=== PATIENT | female | born 1985 | race Caucasian/White ===

== ENCOUNTER 2016-06-07 08:13 | Outpatient (CLI) | payer OTHER | END 2016-06-07 08:14 | disposition home or self-care (01) | DX: S89.81XA Other specified injuries of right lower leg, initial encounter (principal); M25.461 Effusion, right knee ==

== ENCOUNTER 2016-06-15 12:12 | Outpatient (CLI) | payer OTHER | END 2016-06-15 12:13 | disposition home or self-care (01) | DX: M22.41 Chondromalacia patellae, right knee (principal); M25.461 Effusion, right knee; M67.461 Ganglion, right knee ==

== ENCOUNTER 2016-11-06 11:36 | Outpatient (CLI) | payer OTHER ==
[2016-11-06 12:05] LABS: BASOPHILS % (AUTO) 0.8 %; EOSINOPHILS # (AUTO) 0.1 10^3/uL (0.0-0.7); EOSINOPHILS % (AUTO) 1.2 %; HGB - HEMOGLOBIN 14.2 g/dL (12.0-16.0); LYMPHOCYTES # (AUTO) 1.5 10^3/uL (1.5-3.5); MEAN CORPUSCULAR HGB CONC 33.1 g/dL (32.0-36.0); MEAN CORPUSCULAR VOLUME 96.7 fL (81.0-99.0); MONOCYTES # (AUTO) 0.5 10^3/uL (0.0-1.0); MONOCYTES % (AUTO) 8.5 %; NEUTROPHILS # (AUTO) 3.3 10^3/uL (1.5-6.6); NEUTROPHILS % (AUTO) 61.5 %; RED BLOOD COUNT 4.45 10^6/uL (4.20-5.40); RED CELL DISTRIBUTION WIDTH 13.2 % (12.0-15.0); UNCORRECTED WHITE BLOOD COUNT 5.4 x10^3/uL; WHITE BLOOD COUNT 5.4 x10^3/uL (4.8-10.8)
[2016-11-06 12:20] LABS: BILIRUBIN,DIRECT 0.1 mg/dL (0.1-0.5); BILIRUBIN,TOTAL 0.7 mg/dL (0.2-1.0); TOTAL PROTEIN 6.8 g/dL (6.7-8.2)
== END 2016-11-06 11:37 | disposition home or self-care (01) ==
LOC: LAB 11:36
PROVIDERS: ATTEND Psychiatry & Neurology Neurology
DX: G35 Multiple sclerosis (principal)
CPT/HCPCS: 36415; 80076; 85025; 86787

== ENCOUNTER 2016-11-12 11:18 | Outpatient (CLI) | payer OTHER | END 2016-11-12 11:19 | disposition home or self-care (01) | LOC: RT 11:18 | PROVIDERS: ATTEND Psychiatry & Neurology Neurology | DX: G35 Multiple sclerosis (principal) | CPT/HCPCS: 93005 ==

== ENCOUNTER 2017-02-24 14:07 | Outpatient (CLI) | payer OTHER ==
[2017-02-24 16:19] LABS: FOLLICLE STIMULATING HORMONE 3.73 mIU/mL; LUTEINIZING HORMONE 8.56 mIU/mL
[2017-02-25 09:51] LABS: PROGESTERONE 4.4 ng/mL
[2017-02-28 02:30] LABS: TEST RESULT REPORT
== END 2017-02-24 14:08 | disposition home or self-care (01) ==
LOC: LAB 14:07
PROVIDERS: ATTEND Obstetrics & Gynecology
DX: E28.2 Polycystic ovarian syndrome (principal)
CPT/HCPCS: 36415; 81599; 82627; 82670; 83001; 83002; 84144; 84402

== ENCOUNTER 2017-03-06 12:01 | Outpatient (CLI) | payer OTHER ==
[2017-03-06 12:29] LABS: BASOPHILS % (AUTO) 0.3 %; EOSINOPHILS % (AUTO) 0.6 %; HCT - HEMATOCRIT 43.2 % (37.0-47.0); HGB - HEMOGLOBIN 14.9 g/dL (12.0-16.0); LYMPHOCYTES # (AUTO) 0.3 10^3/uL (1.5-3.5); LYMPHOCYTES % (AUTO) 7.2 %; MEAN CORPUSCULAR HEMOGLOBIN 32.8 pg (27.0-31.0); MEAN CORPUSCULAR HGB CONC 34.5 g/dL (32.0-36.0); MEAN CORPUSCULAR VOLUME 95.1 fL (81.0-99.0); MEAN PLATELET VOLUME 7.6 fL (7.9-10.8); MONOCYTES # (AUTO) 0.4 10^3/uL (0.0-1.0); MONOCYTES % (AUTO) 9.4 %; NEUTROPHILS # (AUTO) 3.6 10^3/uL (1.5-6.6); NEUTROPHILS % (AUTO) 82.5 %; RED BLOOD COUNT 4.54 10^6/uL (4.20-5.40); RED CELL DISTRIBUTION WIDTH 12.6 % (12.0-15.0); UNCORRECTED WHITE BLOOD COUNT 4.3 x10^3/uL; WHITE BLOOD COUNT 4.3 x10^3/uL (4.8-10.8)
[2017-03-06 12:33] LABS: BILIRUBIN,URINE NEGATIVE (NEGATIVE)
[2017-03-06 12:35] LABS: ALBUMIN/GLOBULIN RATIO 1.9 (1.0-2.2); BILIRUBIN,TOTAL 0.8 mg/dL (0.2-1.0); CREATININE 0.8 mg/dL (0.4-1.0); POTASSIUM 3.7 mmol/L (3.5-5.0)
[2017-03-06 12:41] LABS: UA CHARGE (STRIP ONLY) YES; UR CULTURE IF IND NOT INDICATED
== END 2017-03-06 12:02 | disposition home or self-care (01) ==
LOC: LAB 12:01
PROVIDERS: ATTEND Psychiatry & Neurology Neurology
DX: G35 Multiple sclerosis (principal)
CPT/HCPCS: 36415; 80053; 81001; 81003; 85025; 87086

== ENCOUNTER 2017-03-06 19:12 | Outpatient (CLI) | payer OTHER ==
--- NOTE | 2017-03-07 12:45 | Ultrasound Report ---
PELVIC ULTRASOUND: 03/06/2017 CLINICAL INDICATION: Polycystic ovarian syndrome. TECHNIQUE: Transabdominal pelvic ultrasound performed for global evaluation. Transvaginal pelvic ultr asound performed for detailed evaluation. Real-time scanning performed and static images obtained. FINDINGS: The uterus is anteverted, measuring 7.2 x 4.5 x 3.0 cm. The endometrial echo complex measu res 5 mm. No focal myometrial lesion is seen. The right ovary is surgically absent. The left ovary me asures 2.7 x 2.0 x 1.9 cm, and appears unremarkable. No free fluid is present. IMPRESSION: NORMAL UTERUS AND LEFT OVARY. SURGICALLY ABSENT RIGHT OVARY. NO FREE FLUID. JOB #: [id number] EXT [id number] #:[id number]
== END 2017-03-06 19:13 | disposition home or self-care (01) ==
LOC: DI 19:12
PROVIDERS: ATTEND Obstetrics & Gynecology
DX: E28.2 Polycystic ovarian syndrome (principal); G35 Multiple sclerosis; Z90.721 Acquired absence of ovaries, unilateral
CPT/HCPCS: 36415; 76830; 76856; 80053; 81001; 81003; 85025; 87086

== ENCOUNTER 2017-03-13 08:01 | Outpatient (CLI) | payer OTHER ==
[~2017-03-13 08:01] MED LIST: GADOBUTROL 7.5 MMOL/7.5 ML VIAL ONE
[2017-03-13] MEDS ORDERED: GADOBUTROL 7.5 MMOL/7.5 ML VIAL IVP ONE (09:07)
--- NOTE | 2017-03-13 10:50 | MRI Report ---
EXAM: MRI BRAIN WITHOUT AND WITH CONTRAST EXAM DATE: 03/13/2017 09:41 AM. CLINICAL HISTORY: 32-year-old with history of multiple sclerosis. Evaluate for interval change. COMPARISON: MR brain 10/13/2015. TECHNIQUE: Multiplanar, multisequence T1-weighted and fluid-sensitive MR sequences of the brain were performed. Sequences optimized for routine evaluation. Other: None. IV Contrast: 7.5 cc GADAVIST. FINDINGS: Brain Volume: Normal for age. Parenchyma: There is mild bilateral areas of supratentorial white matter T2/FLAIR signal hyperintensity seen in a pattern and distribution but can be compatible with patient's history of demyelinating disease. There are at least 4 new T2 hyperintense lesion seen includin. Anterior right insula measuring 3 mm (series 61, image 15). 2. Retrolenticular left internal capsule measuring 5 mm (series 601, image 15). There is faint enhanc ement associated with this lesion 3. Subcortical matter of the left parietal lobe measuring 4 mm (series 601, image 19). 4. Subcortical white matter frontal lobe measuring up to 2 mm (series 601, image 19) with associated enhancement. There is at least one lesion that is increased in size since 10/13/2015 involving the subcortical white matter the right frontal lobe measuring 5 mm (series 601, image 17). There are a few scattered foci seen within the corpus callosum, brainstem, and cerebellum that appear s similar to prior study with no definite new T2 hyperintense lesion seen. No acute parenchymal hemorrhage, mass, or midline shift. No areas restricted diffusion seen to sugges t acute infarct. Ventricles/Cisterns: No hydrocephalus. No abnormal extra-axial fluid collection or hemorrhage. Orbits: Symmetric and unremarkable. Sella Turcica: The pituitary gland, cavernous sinuses, suprasellar cistern and optic chiasm are unrem arkable. IAC: Symmetric and unremarkable. Vasculature: Normal signal flow void is seen in the major arterial structures at the skull base. The dural sinuses are patent and enhance normally. Sinuses: No acute sinus disease. Bones: No focal pathologic appearing marrow signal changes. Other: None. IMPRESSION: 1.There is mild white matter changes seen in a pattern and distribution that can be compatible with p atient's history of demyelinating disease. There are at least four new T2 hyperintense lesions seen w ith two of those lesions demonstrating faint enhancement suggesting active demyelination, as detailed above. There is at least one small non-enhancing T2 hyperintense lesion that has increased in size s fede 10/13/2015. 2. No acute infarct, intracranial hemorrhage, mass, or hydrocephalus. [facility] Referring Provider Line: [phone] SITE ID: [id number]
--- NOTE | 2017-03-13 14:33 | MRI Report ---
EXAM: MRI CERVICAL SPINE WITHOUT AND WITH CONTRAST EXAM DATE: 03/13/2017 09:55 AM. CLINICAL HISTORY: Multiple sclerosis, relapsing-remitting. Recent migraine headaches especially on th e left side. COMPARISON: MRI of the cervical spine 09/09/2015. TECHNIQUE: Multiplanar, multisequence T1-weighted and fluid-sensitive sequences of the cervical spine before and after administration of intravenous contrast. Other: None. IV contrast: 7.5 cc Gadavist. FINDINGS: Neurologic Structures: There are two small foci of increased T2 signal seen posteriorly in the upper cervical spinal cord, unchanged. These include: -Faint 2.5 mm focus dorsally to the right of midline at the C2-C3 level. -4.5 mm focus dorsally to the left of midline at the C3-C4 level. No new foci of intrinsic signal abnormality are appreciated. No abnormal enhancement. Patchy areas of increased T2/STIR signal are noted in the visualized left cerebellar hemisphere, unch anged. Alignment: No scoliosis or spondylolisthesis. Bone Marrow: No gross fractures or bone lesions. No marrow edema or abnormal enhancement. Interspace Levels/Facets: The spinal canal is capacious. C1-C2: Unremarkable on sagittal series. C2-C3: Unremarkable. C3-C4: Unremarkable. C4-C5: Unremarkable. Minimal dorsal disk bulge. C5-C6: Unremarkable. Minimal circumferential disk bulge. C6-C7: Unremarkable. Minimal dorsal disk bulge. C7-T1: Unremarkable. Spinal Canal: No enhancing lesions within the spinal canal. No epidural abscess. Musculature: Normal. No edema, enhancement, or fatty atrophy. Other: The paravertebral and prevertebral soft tissues are normal. IMPRESSION: 1. There are two foci of increased T2 signal seen dorsally in the upper cervical spinal cord, consist ent with the clinical history of multiple sclerosis. There is no significant interval change or abnor mal enhancement to suggest active demyelination. 2. Unremarkable MRI of the cervical spine. No spondylosis or stenosis. [facility] Referring Provider Line: [phone] SITE ID: [id number]
== END 2017-03-13 08:02 | disposition home or self-care (01) ==
LOC: DI 08:01
PROVIDERS: ATTEND Psychiatry & Neurology Neurology
DX: G35 Multiple sclerosis (principal)
CPT/HCPCS: 70553; 72156; A9585

== ENCOUNTER 2017-07-15 18:42 | Outpatient (CLI) | payer OTHER ==
--- NOTE | 2017-07-15 20:19 | CT Preliminary Report ---
Exam: CT SINUSES IMPRESSION: Normal Sinus CT. No sinusitis. [facility] SITE ID: [id number]
--- NOTE | 2017-07-15 20:21 | CT Report ---
EXAM: CT SINUS EXAM DATE: 07/15/2017 07:08 PM. HISTORY: History of multiple sclerosis. Recurrent sinus infections, unresponsive to multiple courses of antibiotic. Patient presents with persistent pressure in the upper sinuses, drainage into the ears , left greater than right. COMPARISONS: No prior CT exam. Head MRI 03/13/2017. TECHNIQUE: Routine multi-axial CT imaging performed through the sinuses. Iodinated IV contrast: None. Reconstructions: Coronal. In accordance with CT protocol optimization, one or more of the following dose reduction techniques w ere utilized for this exam: automated exposure control, adjustment of mA and/or KV based on patient s ize, or use of iterative reconstructive technique. FINDINGS: RIGHT Frontal: Normal. Ethmoid: Normal. Maxillary: Normal. Sphenoid: Normal. Drainage Pathways: The frontal recess, ostiomeatal complex and sphenoethmoidal recess are patent and normal. LEFT Frontal: Normal. Ethmoid: Normal. Maxillary: Normal. Sphenoid: Normal. Drainage Pathways: The frontal recess, ostiomeatal complex and sphenoethmoidal recess are patent and normal. Nasal Cavity: Normal. No mass or significant anatomic abnormality evident. Osseous Structures: Unremarkable. Orbits: Unremarkable. Other: At the time of the prior head MRI, paranasal sinuses, middle ears and mastoid air cells were c lear. IMPRESSION: Normal sinus CT. No sinusitis. [facility] Referring Provider Line: [phone] SITE ID: [id number]
== END 2017-07-15 18:43 | disposition home or self-care (01) ==
LOC: DI 18:42
PROVIDERS: ATTEND Specialist
DX: J01.90 Acute sinusitis, unspecified (principal)
CPT/HCPCS: 70486

== ENCOUNTER 2019-06-08 07:21 | Outpatient (CLI) | payer BC | END 2019-06-08 07:22 | disposition critical access hospital (66) | LOC: EMS 07:21 | PROVIDERS: ATTEND Surgery | DX: R41.82 Altered mental status, unspecified (principal) | CPT/HCPCS: A0425; A0427 ==

== ENCOUNTER 2019-06-08 07:36 | Inpatient (IN) | payer BC, OTHER ==
[2019-06-08] MEDS ORDERED: SODIUM CHLORIDE 0.9% 1,000 ML IV ONE ×2 (07:55→07:58)
[2019-06-08] MEDS ORDERED: FAMOTIDINE 20 MG/2 ML VIAL IVP STA (07:56)
[2019-06-08] MEDS ORDERED: NALOXONE 2 MG in SODIUM CHLORIDE 0.9% 495 ML IV STA (07:57)
--- NOTE | 2019-06-08 08:01 | ED Physician Documentation ---
PD HPI OVERDOSE - Stated complaint Stated Complaint: OD - History obtained from History obtained from: Family, EMS - History of Present Illness Timing - onset: Today (The states he came home from work and found the patient unresponsive on the floor with out apparent breathing that he could tell. EMS was called. EMS reports the was doing CPR and some breathing intermittently. On their arrival they were able to find a pulse and minimal breathing and she had a heart rate with adequate saturations. IV was started in which she was given some Narcan which did improve her clinically to the point of localizing pain. She does not talk or open her eyes.) Subtance(s) ingested: Multiple, Narcotic, Benzo Associated symptoms: Resp depression, Unresponsive Contributing factors: Depresssed, Suicidal ( states she does have a history of depression. It was a suicide note found with her medicines. There were several empty bottles beside her on the bed which were some oxycodone prescription for 10 tablets from April and benzodiazepines of lorazepam clonazepam (small Rxs of 20) and then Trazodone (30 tablets Rx). 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 - Present Medications Home Medications: Ambulatory Orders Medication Instructions Recorded Confirmed Cyclobenzaprine [Flexeril] 10 mg PO DAILY PRN 04/26/15 09/11/16 Fluticasone [Flonase] 1 spray BID 04/26/15 09/11/16 Rizatriptan Benzoate [Rizatriptan] 5 mg PO DAILY PRN 04/26/15 09/11/16 Amantadine HCl [Amantadine] 200 mg PO BID 10/13/15 09/11/16 Cholecalciferol (Vitamin D3) 10,000 unit PO DAILY 10/13/15 09/11/16 [Vitamin D3] Cranberry Fruit Extract [Cranberry] 500 mg PO DAILY 10/13/15 09/11/16 SUMAtriptan [Imitrex] 50 mg PO ONCE PRN 10/13/15 09/11/16 clonazePAM [Clonazepam] 0.25 mg PO BID 10/13/15 09/11/16 raNITIdine [Zantac] 150 mg PO DAILY 10/13/15 09/11/16 Calcium Citrate 600 mg ORAL DAILY 09/11/16 09/11/16 Cetirizine [ZyrTEC] 25 mg ORAL DAILY 09/11/16 09/11/16 Glatiramer Acetate [Copaxone] 20 mg SQ DAILY 09/11/16 09/11/16 Glucosamine Sulfate 200 mg ORAL DAILY 09/11/16 09/11/16 Lactobacillus Acidophilus 1 tab ORAL DAILY 09/11/16 09/11/16 [Probiotic Acidophilus] Melatonin 3 mg ORAL DAILY 09/11/16 09/11/16 Topiramate [Topamax] 50 mg ORAL BID 09/11/16 09/11/16 - Allergies Allergies/Adverse Reactions: Allergies Allergy/AdvReac Type Severity Reaction Status Date / Time morphine Allergy Severe Respiratory Verified 10/13/15 13:04 NSAIDS (Non-Steroidal AdvReac Severe Emesis Verified 10/13/15 13:04 Anti-Inflamma Sulfa (Sulfonamide AdvReac Intermediate Unknown Verified 10/13/15 13:04 Antibiotics) - Social History Does the pt smoke?: No Smoking Status: Never smoker Does the pt drink ETOH?: No Does the pt have substance abuse?: No - Immunizations Immunizations are current?: Yes - POLST Patient has POLST: No PD ED PE NORMAL - Vitals Vital signs reviewed: Yes - General General: Well developed/nourished. No: Alert and oriented X 3 (unlabored respirations.Adequate tidal volume clinically. ) - HEENT HEENT: Atraumatic, Pharynx benign (with gag reflex), Dentition benign - Neck Neck: Supple, no meningeal sign, No adenopathy, No JVD - Cardiac Cardiac: RRR, No murmur - Respiratory Respiratory: No respiratory distress, Clear bilaterally - Abdomen Abdomen: Non distended. No: Normal bowel sounds (diminished) - Female Female : Deferred - Rectal Rectal: Deferred - Derm Derm: Normal color, Warm and dry - Extremities Extremities: No deformity, No edema, Other (contusion with abrasion right shoulder; no noted deformity) - Neuro Neuro: Other (diminished reflexes diffusely) Eye Opening: None Motor: Localizes to Pain Verbal: Incomprehensible GCS Score: 8 Results - Vitals Vitals: Vital Signs - 24 hr 06/08/19 06/08/19 07:35 08:09 Temperature 36.1 C L Heart Rate 110 H 96 Respiratory 15 14 Rate Blood Pressure 105/74 127/83 H O2 Saturation 100 97 Oxygen O2 Source Room air - Labs Labs: Laboratory Tests 06/08/19 06/08/19 06/08/19 07:56 08:04 08:04 WBC 2.4 L RBC 4.41 Hgb 13.8 Hct 41.3 MCV 93.7 MCH 31.3 H MCHC 33.4 RDW 12.0 Plt Count 130 MPV 9.8 Bld Gas Analysis Time Sample Site ABG pH ABG pCO2 ABG pO2 ABG HCO3 ABG Total CO2 ABG O2 Saturation ABG Base Excess Jase Test Room Air Sodium 142 Potassium 3.6 Chloride 112 H Carbon Dioxide 21 Anion Gap 9.0 BUN 9 Creatinine 0.7 Estimated GFR (MDRD) 96 Glucose 121 H Calcium 8.4 L Total Bilirubin 0.6 AST 21 ALT 20 Alkaline Phosphatase 47 Total Protein 6.1 L Albumin 3.9 Globulin 2.2 Albumin/Globulin Ratio 1.8 Lipase 21 L Urine Color YELLOW Urine Clarity CLEAR Urine pH 5.5 Ur Specific [place] 1.015 Urine Protein NEGATIVE Urine Glucose (UA) NEGATIVE Urine Ketones NEGATIVE Urine Occult Blood NEGATIVE Urine Nitrite NEGATIVE Urine Bilirubin NEGATIVE Urine Urobilinogen 0.2 (NORMAL) Ur Leukocyte Esterase NEGATIVE Ur Microscopic Review NOT INDICATED Urine Culture Comments NOT INDICATED Salicylates < 6.0 Urine Opiates Screen NEGATIVE Ur Oxycodone Screen POSITIVE H Urine Methadone Screen NEGATIVE Ur Propoxyphene Screen NEGATIVE Acetaminophen < 10 L Ur Barbiturates Screen NEGATIVE Ur Tricyclics Screen POSITIVE H Ur Phencyclidine Scrn NEGATIVE Ur Amphetamine Screen NEGATIVE U Methamphetamines Scrn NEGATIVE U Benzodiazepines Scrn POSITIVE H Urine Cocaine Screen NEGATIVE U Cannabinoids Screen NEGATIVE Ethyl Alcohol < 5.0 06/08/19 08:13 WBC RBC Hgb Hct MCV MCH MCHC RDW Plt Count MPV Bld Gas Analysis Time 0813 Sample Site RIGHT RADIAL ABG pH 7.31 L ABG pCO2 41 ABG pO2 85 ABG HCO3 20.3 L ABG Total CO2 21.6 ABG O2 Saturation 97 ABG Base Excess -5.6 L Jase Test POSITIVE Room Air YES Sodium Potassium Chloride Carbon Dioxide Anion Gap BUN Creatinine Estimated GFR (MDRD) Glucose Calcium Total Bilirubin AST ALT Alkaline Phosphatase Total Protein Albumin Globulin Albumin/Globulin Ratio Lipase Urine Color Urine Clarity Urine pH Ur Specific [place] Urine Protein Urine Glucose (UA) Urine Ketones Urine Occult Blood Urine Nitrite Urine Bilirubin Urine Urobilinogen Ur Leukocyte Esterase Ur Microscopic Review Urine Culture Comments Salicylates Urine Opiates Screen Ur Oxycodone Screen Urine Methadone Screen Ur Propoxyphene Screen Acetaminophen Ur Barbiturates Screen Ur Tricyclics Screen Ur Phencyclidine Scrn Ur Amphetamine Screen U Methamphetamines Scrn U Benzodiazepines Scrn Urine Cocaine Screen U Cannabinoids Screen Ethyl Alcohol - Rads (name of study) head CT Radiology: Prelim report reviewed, EMP read contemporaneously (no ICH), See rad report PD MEDICAL DECISION MAKING - ED course Complexity details: considered differential (Apparent overdose with suicidal intent. Given the mixture of trazodone with benzodiazepines as well as oxycodone, I expect a long period of time with altered mentation. Her ventilation and oxygenation is adequate. Should be kept in a position with head of bed elevated and towel roll behind her shoulders. Blood gas shows good ventilation. She had shown some improvement with Narcan by EMS. This will only partly reverse it however given the benzodiazepines as well as trazodone. She looks like she does take those more regularly and so I did not give any Romazicon for concern of precipitating withdrawal and went with the clinical situation of adequate ventilation and supportive care at this point. We can valeria ce a Narcan drip as her narcotic use is episodic in her prescription she has right now is for only 10 tablets.), d/w patient Departure - Departure Disposition: 66 [facility] DC/Xfer Clinical Impression: Intentional overdose of drug in tablet form, Suicide attempt, Multiple sclerosis Depression Qualifiers: Depression Type: unspecified Qualified Code(s): F32.9 - Major depressive disorder, single episode, unspecified Condition: Stable Record reviewed to determine appropriate education?: Yes
[2019-06-08 08:02] LABS: MUDS CUTOFF CONCENTRATIONS CUTOFF CONC BELOW:
[2019-06-08 08:10] LABS: BILIRUBIN,URINE NEGATIVE (NEGATIVE); GLUCOSE, URINE (UA) NEGATIVE (NEGATIVE); KETONES,URINE (UA) NEGATIVE (NEGATIVE); LEUKOCYTE ESTERASE, URINE NEGATIVE (NEGATIVE); NITRITE,URINE NEGATIVE (NEGATIVE); OCCULT BLOOD,URINE NEGATIVE (NEGATIVE); PH,URINE 5.5 PH (5.0-7.5); PROTEIN,URINE NEGATIVE (NEGATIVE); UROBILINOGEN,URINE 0.2 (NORMAL) E.U./dL (NORMAL)
[2019-06-08 08:13] LABS: CLARITY,URINE CLEAR (CLEAR)
[2019-06-08 08:20] LABS: HGB - HEMOGLOBIN 13.8 g/dL (12.0-16.0); MEAN CORPUSCULAR HEMOGLOBIN 31.3 pg (27.0-31.0); MEAN CORPUSCULAR HGB CONC 33.4 g/dL (32.0-36.0); MEAN CORPUSCULAR VOLUME 93.7 fL (81.0-99.0); MEAN PLATELET VOLUME 9.8 fL (7.9-10.8); PLT - PLATELET COUNT 130 10^3/uL (130-450); RED BLOOD COUNT 4.41 10^6/uL (4.20-5.40); WHITE BLOOD COUNT 2.4 x10^3/uL (4.8-10.8)
[2019-06-08 08:24] LABS: ABNORMAL LYMPHS % (MANUAL) 0 %; BAND NEUTROPHILS % (MANUAL) 0 %
[2019-06-08 08:27] LABS: ABG BASE EXCESS -5.6 mmol/L (-2.0-3.0); ABG HCO3 20.3 mmol/L (22.0-26.0); ABG OXYGEN SATURATION 97 % (94-98); ABG PCO2 41 mmHg (34-45); ABG PH 7.31 (7.35-7.45); ABG PO2 85 mmHg (80-100); ABG TCO2 21.6 MMOL/L (21.0-29.0); ALLEN TEST POSITIVE
[2019-06-08 08:27] LABS: COCAINE SCREEN URINE NEGATIVE (NEGATIVE); METHAMPHETAMINES SCREEN, URINE NEGATIVE (NEGATIVE); OPIATE SCREEN, URINE NEGATIVE (NEGATIVE)
[2019-06-08 08:27] LABS: ACETAMINOPHEN < 10 ug/mL (10-30); ALBUMIN 3.9 g/dL (3.2-5.5); ALBUMIN/GLOBULIN RATIO 1.8 (1.0-2.2); ALKALINE PHOSPHATASE 47 IU/L (42-121); ALT ALANINE AMINOTRANSFERASE 20 IU/L (10-60); AST ASPARTATE AMINOTRANSFERASE 21 IU/L (10-42); BILIRUBIN,TOTAL 0.6 mg/dL (0.2-1.0); BUN - BLOOD UREA NITROGEN 9 mg/dL (6-20); CALCIUM 8.4 mg/dL (8.5-10.3); CARBON DIOXIDE - CO2 21 mmol/L (21-32); CHLORIDE 112 mmol/L (101-111); CREATININE 0.7 mg/dL (0.4-1.0); GFR - MDRD 96 (>89); GLUCOSE 121 mg/dL (70-100); LIPASE 21 U/L (22-51); SALICYLATE < 6.0 mg/dL; SODIUM 142 mmol/L (135-145); TOTAL PROTEIN 6.1 g/dL (6.7-8.2)
[2019-06-08 08:28] LABS: AMPHETAMINE SCREEN,URINE NEGATIVE (NEGATIVE); BENZODIAZEPINES SCREEN, URINE POSITIVE (NEGATIVE); METHADONE SCREEN, URINE NEGATIVE (NEGATIVE); OXYCODONE SCREEN, URINE POSITIVE (NEGATIVE); PROPOXYPHENE SCREEN, URINE NEGATIVE (NEGATIVE); TRICYCLIC ANTIDEPRESSANT,URINE POSITIVE (NEGATIVE)
--- NOTE | 2019-06-08 08:47 | CT Report ---
Reason: possible fall; altered LOC Procedure Date: 06/08/2019 Accession Number: [id number] / [id number] Procedure: CT - HEAD WO CPT Code: Final Report FULL RESULT: EXAM: CT HEAD EXAM DATE: 06/08/2019 08:21 AM. CLINICAL HISTORY: Possible fall; altered LOC. Multiple sclerosis history COMPARISON: SINUSES 07/15/2017 6:55 PM BRAIN W/WO 03/13/2017 8:00 AM. TECHNIQUE: Multiaxial CT images were obtained from the foramen magnum to the vertex. Reformats: Sagittal and coronal. IV contrast: None. In accordance with CT protocol optimization, one or more of the following dose reduction techniques were utilized for this exam: automated exposure control, adjustment of mA and/or KV based on patient size, or use of iterative reconstructive technique. FINDINGS: Parenchyma: No intraparenchymal hemorrhage. No evidence of mass, midline shift, or CT findings of infarction. Bermudez-white differentiation is distinct. White matter lesions seen on MRI are not well seen by CT. Extraaxial Spaces: Normal for age. No subdural or epidural collections identified. Ventricles: Normal in size and position. Sinuses and Orbits: Imaged paranasal sinuses, orbits, and mastoids show no significant abnormality. Bones: No evidence of fracture or calvarial defect. Other: None. IMPRESSION: No acute intracranial findings [facility]
[2019-06-08] MEDS ORDERED: ONDANSETRON 4 MG/2 ML VIAL IVP PRN (09:02)
[2019-06-08] MEDS ORDERED: SODIUM CHLORIDE FLUSH 0.9% 10 ML SYRINGE IVP PRN (09:02)
[2019-06-08] MEDS ORDERED: ONDANSETRON ODT 4 MG TABLET TL PRN (09:02)
[2019-06-08 09:07] LABS: EOSINOPHILS # (MANUAL) 0.1 10^3/uL (0-0.7); LYMPHOCYTES # (MANUAL) 0.3 10^3/uL (1.5-3.5); LYMPHOCYTES % (MANUAL) 14 %; MONOCYTES # (MANUAL) 0.1 10^3/uL (0.0-1.0); PLATELET ESTIMATE, MANUAL NORMAL (130-450,000) (NORMAL); PLATELET MORPHOLOGY NORMAL APPEARANCE (NORMAL); RBC MORPHOLOGY (MULTIPLE) NORMAL APPEARANCE (NORMAL)
[2019-06-08 09:08] LABS: DIFFERENTIAL COMMENT MANUAL DIFFERENTIAL
--- NOTE | 2019-06-08 09:14 | XRAY Report ---
Reason: altered mental status Procedure Date: 06/08/2019 Accession Number: [id number] / [id number] Procedure: XR - Chest 1 View X-Ray CPT Code: 43397 Final Report FULL RESULT: EXAM: CHEST RADIOGRAPHY EXAM DATE: 06/08/2019 08:35 AM. CLINICAL HISTORY: Altered mental status. COMPARISON: None. TECHNIQUE: 1 view. FINDINGS: Lungs/Pleura: Decreased lung volume. Indistinct hilum. Negative for consolidation. Negative for pleural fluid. Mediastinum: Top normal heart size. Trachea is midline. Other: None. IMPRESSION: 1. Negative for consolidation. 2. Possible early perihilar edema or pulmonary congestion. [facility]
[2019-06-08] MEDS: LACTATED RINGERS 1,000 ML IV SCH ×2 (10:13→18:52)
[2019-06-08] MEDS ORDERED: PROPOFOL 200 MG/20 ML VIAL IVP ONE (11:27)
[2019-06-08] MEDS ORDERED: FLUMAZENIL 0.1 MG/1 ML 5 ML MDV IVP ONE (11:37)
--- NOTE | 2019-06-08 11:38 | CONSULTATION NOTE ---
Consultation Report: Call for stat intubation of OD pt unresponsive to narcan. Pt supine with VSS upon arrival. BP 140/75, SAT 100%, being assisted with Ambu per RT. Propofol 100mg, Rocuronium 40mg IV. Glidescope with MAC4 used to place 7.5ETT to 21 at teeth. View=1. +ETCO2, BBS, tube secured per RT. Order for CXR to confirm, VSS t/o procedure.
[2019-06-08] MEDS: ENOXAPARIN 40 MG/0.4 ML SYRINGE SUBQ SCH (11:50)
--- NOTE | 2019-06-08 11:52 | HISTORY & PHYSICAL EXAMINATION ---
Chief Complaint - Chief Complaint Chief Complaint: found unconscious after drug OD History of Present Illness - Admitted From Admitted From:: Home via EMS - History Obtained From Records Reviewed: [facility] History obtained from: and best friend Exam Limitations: she is unconscious - History of Present Illness HPI Comment/Other: 34-year-old white female who has had polycystic ovarian disease, and multiple sclerosis. She has not been able to be employed since 2019. Even then that was a brief time. 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 She cannot work in front of a computer screen because it triggers her migraines. She has problems with gait ataxia, and "a mental fog" because of her MS. She is experiencing some stress and anxiety with family in [place]. She and her are also in the midst of negotiating their marriage. She would like a divorce and is very unhappy. But she cannot divorce him because she is financially dependent on he and his insurance benefits. While she has been unhappy, is seeing a counselor, she has never stated that she wanted to kill herself according to her and best friend. He went to work yesterday. He works in [employer] at the [employer]. He works material handler 1st shift and comes home at 7 in the evening. Her best friend spoke to her at 10 PM last night and the conversation was "normal". came home after 7 AM this morning and found her unconscious in the living room floor. Bottles of oxycodone, trazodone, lorazepam, clonazepam are empty. She has not regained consciousness. In the emergency room she had stable vital signs, was breathing on her own, and had adequate O2 sats. She was admitted to ICU with a Narcan drip. Unfortunately after transfer, she became apneic with PCO2 monitor reading 0. As such I have asked anesthesia to emergently intubate her after we bagged her to stabilize her airway. The entire time she is had a pulse and a pressure. History is obtained from her and best friend. Patient is unable to answer questions at this time. History - Past Medical History Cardiovascular: reports: None Respiratory: reports: None Neuro: reports: Migraines, Multiple sclerosis (she is folloowed by Andrew Mahajan MD at [facility]. [phone], F [phone]. She has had symptoms for years. Easily stumbles. Brain did not think very clearly. Was not diagnosed till 2016. She is on Copaxone 20 mg subcu daily.) Endocrine/Autoimmune: reports: None GI: reports: GERD, Ulcers MANAGER RISK MANAGEMENT: reports: Other (. Polycystic ovarian disease. It is unclear why, but she needed a hysterectomy and had 1 a year ago. She is on estrogen replacement therapy since then.) : reports: Frequency HEENT: reports: Chronic vision loss Psych: reports: Depression (She sees a counselor on a regular basis. Her does not know to the name of the counselor. She saw him June 03.), Anxiety Musculoskeletal: reports: Fatigue, Chronic back pain Derm: reports: None MRSA Hx?: No - Past Surgical History /MANAGER RISK MANAGEMENT: reports: Hysterectomy, Oophrectomy - Family & Social History Family History Comment/Other: Mom is approximately 55 to 56 years old. She has had some type of thyroid or parathyroid cancer. Also has hypertension. Dad is also in his mid 50s as a had had diabetes, hypertension, obesity. One brother is questionably healthy. He may have borderline diabetes. No children Living arrangement: At home Living Situation: With spouse/s.o. Social History Notes: Born and raised in [place]. Met her there, he is employed in the oil industry and offloads oil from pipes. in approximately 2007. They came to [facility] because he hated living in [place], and transferred from his company to the company here. She has had a couple of jobs but has not been able to maintain them because of her headaches, inability to work in front of a computer screen. She is in the process of tr lurdes to obtain disability because of her MS. She has been told that they may take up to 2 years and she needs to stay with her 's medical until she can get her own medical insurance. states they have had a rough patch in the marriage and he is agreed to counseling just this week. She vapes daily. Uses occasional cannabis. Does not use tobacco products. Does not have a problem with alcohol abuse. To his knowledge and her best friend's knowledge there is no cocaine, heroin, LSD, methamphetamine use. - Substance History Use: Uses substance without health or social issues: Other (Vaping daily) Abuse: Recurrent use of substance despite neg consequences: Inhalant Abuse Issues: Other Dependence: Experiences withdrawal or developed tolerances: NONE - POLST Patient has POLST: No POLST Status: Full Code Meds/Allgy - Home Medications Home Medications: Ambulatory Orders Medication Instructions Recorded Confirmed Cyclobenzaprine [Flexeril] 10 mg PO DAILY PRN 04/26/15 09/11/16 Fluticasone [Flonase] 1 spray BID 04/26/15 09/11/16 Rizatriptan Benzoate [Rizatriptan] 5 mg PO DAILY PRN 04/26/15 09/11/16 Amantadine HCl [Amantadine] 200 mg PO BID 10/13/15 09/11/16 Cholecalciferol (Vitamin D3) 10,000 unit PO DAILY 10/13/15 09/11/16 [Vitamin D3] Cranberry Fruit Extract [Cranberry] 500 mg PO DAILY 10/13/15 09/11/16 SUMAtriptan [Imitrex] 50 mg PO ONCE PRN 10/13/15 09/11/16 clonazePAM [Clonazepam] 0.25 mg PO BID 10/13/15 09/11/16 raNITIdine [Zantac] 150 mg PO DAILY 10/13/15 09/11/16 Calcium Citrate 600 mg ORAL DAILY 09/11/16 09/11/16 Cetirizine [ZyrTEC] 25 mg ORAL DAILY 09/11/16 09/11/16 Glatiramer Acetate [Copaxone] 20 mg SQ DAILY 09/11/16 09/11/16 Glucosamine Sulfate 200 mg ORAL DAILY 09/11/16 09/11/16 Lactobacillus Acidophilus 1 tab ORAL DAILY 09/11/16 09/11/16 [Probiotic Acidophilus] Melatonin 3 mg ORAL DAILY 09/11/16 09/11/16 Topiramate [Topamax] 50 mg ORAL BID 09/11/16 09/11/16 - Allergies Allergies/Adverse Reactions: Allergies Allergy/AdvReac Type Severity Reaction Status Date / Time morphine Allergy Severe Respiratory Verified 10/13/15 13:04 NSAIDS (Non-Steroidal AdvReac Severe Emesis Verified 10/13/15 13:04 Anti-Inflamma Sulfa (Sulfonamide AdvReac Intermediate Unknown Verified 10/13/15 13:04 Antibiotics) Review of Systems - Constitutional Constitutional: reports: Fatigue, Malaise, Other (Her main deficits have to do with incoordination, mental fog from multiple sclerosis. She used to have to use a cane and her gait is improved to the point that she no longer needs that. Over the last few months she is actually improved tremendously with treatment from [facility] neurology.) - Eyes Eyes: denies: Pain, Irritation, Amaurosis, Blurred vision - Ears, Nose & Throat Ears, Nose & Throat: reports: Vertigo. denies: Hearing loss, Hearing aids, Tinnitus, Sore throat, Hoarseness - Cardiovascular Cariovascular: reports: Syncope. denies: Irregular heart rate, Palpitations, Chest pain, Edema - Respiratory Respiratory: denies: Cough, Sputum production, Wheezing, SOB at rest, SOB with exertion - Gastrointestinal Gastrointestinal: reports: Constipation. denies: Abdominal pain, Abdominal distention, Nausea, Vomiting - Genitourinary Genitourinary: reports: Frequency, Urgency, Other ( states there is no urinary or bowel incontinence with her MS). denies: Dysuria, Hematuria, Incontinence, Flank pain, Nocturia - Musculoskeletal Musculoskeletal: reports: Muscle pain, Back pain, Muscle aches, Muscle weakness - Integumentary Integumentary: denies: Rash, Pruritis, Lesions, Dryness, Acne - Neurological Neurological: reports: General weakness, Headache, Incoordination (She stumbles easily. Incoordination because of her MS.), Other (She has episodes with fluorescent lights. For instance she will go underneath the tunnel in [place], and come out of the tunnel not knowing where she is, what day it is, and has had episodes of flat out unconsciousness when lights stimulate her eyes. She is reduced her nighttime driving and only drives during the day now. But she has had some of these episodes during the day.). denies: Focal weakness - Psychiatric Psychiatric: reports: Depression, Anxiety, Other (Both and best friend deny that she is ever had suicidal thoughts. She is never talked about killing herself. This is a total shock for them.) - Endocrine Endocrine: denies: Polyuria, Polydypsia - Hematologic/Lymphatic Hematologic/Lymphatic: denies: Anemia, Bruising, Petechiae Prior Level of Functionality: While she has incoordination, stumbles. She does not have any problems with flat out falling, seizures, optic neuritis or bowel or bladder incontinence. states that she can cook helper vegetable, buy groceries, do laundry, change sheets in bed, and is completely independent with activities of daily living. She still drives a car, mainly during the day. Unable to be employed because of headaches and cognitive affective multiple sclerosis Exam - Vital Signs Reviewed Vital Signs: Yes Vital Signs: Vital Signs x48h Temp Pulse Pulse Resp BP BP Pulse Ox 06/08/19 11:00 34.7 C L 79 11 L 98/54 L 100 06/08/19 10:47 34.6 C L 82 24 104/58 L 100 06/08/19 10:00 34.5 C L 84 23 123/76 100 06/08/19 09:45 35.5 C L 81 19 128/78 100 06/08/19 08:41 89 13 129/62 99 06/08/19 08:09 96 14 127/83 H 97 06/08/19 07:35 36.1 C L 110 H 15 105/74 100 - Physical Exam General Appearance: positive: No acute distress, Other (Unconscious, unresponsive young white female who is 5 feet 4 inches tall and weighs 86 kg. I met her just before she was intubated, and now she is intubated with an ET tube in her mouth.) Eyes Bilateral: positive: Normal inspection, PERRL, EOMI ENT: positive: Pharynx nml Neck: positive: No JVD. negative: Stiff neck, Carotid bruit Respiratory: positive: Chest non-tender. negative: Wheezes, Rales, Rhonchi Cardiovascular: positive: Regular rate & rhythm, No murmur, No gallop. negative: Friction rub Peripheral Pulses: positive: 1+ Abdomen: positive: Non-tender, No organomegaly, Nml bowel sounds, No distention Skin: positive: Warm, Dry Extremities: positive: Full ROM (Passively. There is no active range of motion.), No pedal edema Neurologic/Psychiatric: positive: Other (Unresponsive to sternal rub. Is spontaneously breathing. No posturing.) Reflexes: Bicep (R): 1+, Bicep (L): 1+, Knee (R): 0, Knee (L): 0, Ankle (R): 0, Ankle (L): 0 Babinski Reflex: Right: Down, Left: Down Conclusion/Plan - Problem List (1) Intentional overdose of drug in tablet form Conclusion/Plan: Tricyclic overdose, benzodiazepine overdose, possible opiate overdose. Romazicon contraindicated in tricyclic overdose. She was initially breathing well in the emergency room, but upon transfer to ICU has had respiratory difficulties with apnea. She will be placed in ICU with Narcan drip. Observation stay Close monitoring of vitals and show she is awake to be able to be extubated [facility] evaluation once extubated (2) Respiratory agent overdose Conclusion/Plan: with apnea. She has now been intubated. We will keep her on ventilator support for the next few hours. Wait for effects of her drug overdose to resolve before extubating. Maintain oral care, sedation as needed. Qualifiers: Encounter type: initial encounter (3) Neutropenia, drug-induced Conclusion/Plan: and friend state that she is neutropenic due to her medication from [facility] for multiple sclerosis. It is not a new problem for her. They do not know what the actual number is but they feel that she is "stable" with this. (4) Multiple sclerosis, relapsing-remitting Conclusion/Plan: Her MD is Andrew Mahajan. I will make sure he gets notified of this admisison. (5) Depression with anxiety Conclusion/Plan: and friend will find out her her counsellor is so I can notify him as well. - Lab Results Lab results reviewed: Yes Malachi Bones: 06/08/19 08:04 06/08/19 08:04 - Diagnostic Imaging Results Diagnostic Imaging Results: positive: Final report reviewed - EKG Results EKG Interpreted Independently: No Core Measures - Anticipated LOS I expect patient to be DC'd or transferred within 96 hours.: Yes - DVT/VTE - Prophylaxis VTE/DVT Device ordered at admit?: Yes
--- NOTE | 2019-06-08 12:31 | XRAY Report ---
Reason: intubation and og placement Procedure Date: 06/08/2019 Accession Number: [id number] / [id number] Procedure: XR - Chest for Line Placement CPT Code: Final Report FULL RESULT: EXAM: CHEST RADIOGRAPHY EXAM DATE: 06/08/2019 12:09 PM. CLINICAL HISTORY: Intubation and og placement. COMPARISON: CHEST 1 VIEW 06/08/2019 8:35 AM. TECHNIQUE: 1 view. FINDINGS: Lungs/Pleura: Bilateral areas of peribronchial thickening. Pulmonary vascularity appears cephalized which may be due to supine nature of the film. Increased interstitial markings bilaterally. Mediastinum: Within exam limitations, the cardiomediastinal contour is normal. Other: ET tube above the rob. NG tube in distal stomach. IMPRESSION: ET tube above the rob. NG tube in distal stomach. Increased interstitial markings bilaterally. RADIA
[2019-06-08] MEDS: PROPOFOL 1000 MG/100 ML 100 ML IV SCH (13:29)
[2019-06-08] MEDS ORDERED: SODIUM CHLORIDE 0.9% 500 ML ONE (13:39)
[2019-06-08] MEDS: SODIUM CHLORIDE 0.9% 500 ML IV PRN (13:39)
--- NOTE | 2019-06-08 14:09 | PHARMACY PROGRESS NOTE ---
- Best Possible Medication History Admit Date and Time: 06/08/19 0902 Processed by: Pharmacy Medication History completed: In progress Patient Interview: Pt unable to participate (Reviewed) Secondary Source(s): Prescription bottles As the person ultimately responsible for medication therapy, providers are able to order a medication from an existing home medication list in [facility] via the "Reconcile Routine" prior to Confirmation of that medication by customer support specialist. Such practice is discouraged except when the physician, in their clinical judgment, deems that a medical need exists for a medication without regard to previous use.
[2019-06-08 14:55] LABS: ABG BASE EXCESS -2.6 mmol/L (-2.0-3.0); ABG HCO3 18.3 mmol/L (22.0-26.0); ABG PH 7.52 (7.35-7.45)
[2019-06-08 14:56] LABS: ABG OXYGEN SATURATION 99 % (94-98); ALLEN TEST POSITIVE
[2019-06-08 15:00] LABS: ABG PCO2 23 mmHg (34-45); ABG PO2 196 mmHg (80-100)
[2019-06-08] MEDS ORDERED: MINERAL OIL/PETROLAT OPHTH OINT EACHEYE PRN (15:56)
[2019-06-08] MEDS: SODIUM CHLORIDE FLUSH 0.9% 10 ML SYRINGE IVP SCH (17:23)
[2019-06-08] MEDS: CHLORHEXIDINE GLUCONATE 15 ML UDC PO SCH (21:09)
[2019-06-09] MEDS: SODIUM CHLORIDE FLUSH 0.9% 10 ML SYRINGE IVP SCH ×3 (00:19→16:51)
[2019-06-09] MEDS: PROPOFOL 1000 MG/100 ML 100 ML IV SCH (04:04)
[2019-06-09] MEDS: LACTATED RINGERS 1,000 ML IV SCH ×4 (04:28→23:46)
[2019-06-09 05:22] LABS: BASOPHILS % (AUTO) 0.2 %; EOSINOPHILS % (AUTO) 0.3 %; HGB - HEMOGLOBIN 13.2 g/dL (12.0-16.0); LYMPHOCYTES # (AUTO) 0.2 10^3/uL (1.5-3.5); LYMPHOCYTES % (AUTO) 3.1 %; MEAN CORPUSCULAR HEMOGLOBIN 31.1 pg (27.0-31.0); MEAN CORPUSCULAR HGB CONC 32.4 g/dL (32.0-36.0); MEAN CORPUSCULAR VOLUME 95.8 fL (81.0-99.0); MEAN PLATELET VOLUME 10.3 fL (7.9-10.8); MONOCYTES # (AUTO) 0.6 10^3/uL (0.0-1.0); MONOCYTES % (AUTO) 9.4 %; NEUTROPHILS # (AUTO) 5.1 10^3/uL (1.5-6.6); NEUTROPHILS % (AUTO) 86.7 %; PLT - PLATELET COUNT 140 10^3/uL (130-450); RED BLOOD COUNT 4.25 10^6/uL (4.20-5.40); RED CELL DISTRIBUTION WIDTH 12.5 % (12.0-15.0); WHITE BLOOD COUNT 5.9 x10^3/uL (4.8-10.8)
[2019-06-09 05:26] LABS: CALCIUM 8.6 mg/dL (8.5-10.3); CREATININE 0.9 mg/dL (0.4-1.0)
[2019-06-09] MEDS: PANTOPRAZOLE 40 MG VIAL IVP SCH (06:41)
[2019-06-09] MEDS: CHLORHEXIDINE GLUCONATE 15 ML UDC PO SCH ×2 (08:39→21:56)
[2019-06-09] MEDS: ENOXAPARIN 40 MG/0.4 ML SYRINGE SUBQ SCH (09:36)
--- NOTE | 2019-06-09 12:37 | PROVIDER PROGRESS NOTE ---
Subjective - Prog Note Date Prog Note Date: 06/09/19 Prog Note Time: 12:37 - Subjective Subjective: Very few moments of being appropriate enough to look at us. Sometimes wakes up for a few moments to try and pull out ET tube and then goes right back to sleep. She is off propofol completely. Current Medications - Current Medications Current Medications: Active Medications Chlorhexidine Gluconate (Peridex) 15 ml PO BID [facility] Last Admin: 06/09/19 08:39 Dose: 15 ml Enoxaparin Sodium (Lovenox) 40 mg SUBQ DAILY [facility] Last Admin: 06/09/19 09:36 Dose: 40 mg Propofol (Diprivan) 100 mls @ 5.171 mls/hr IV .[id number] [facility]; Protocol Last Titration: 06/09/19 06:56 Dose: 0 mcg/kg/min, 0 mls/hr Sodium Chloride (Normal Saline 0.9%) 500 mls @ 0 mls/hr IV Q24H PRN PRN Reason: TKO RATE Last Infusion: 06/08/19 18:54 Dose: 20 mls/hr Lactated Ringer's (Lr) 1,000 mls @ 100 mls/hr IV .Q10H [facility] Last Infusion: 06/09/19 12:00 Dose: 100 mls/hr Multi-Ingred Cream/Lotion/Oil/Oint (Lubrifresh Pm Ophth Oint) 1 applic EACHEYE QPM PRN PRN Reason: Dry Eye Last Admin: 06/08/19 17:20 Dose: 1 applic Ondansetron HCl (Zofran Inj) 4 mg IVP Q6HR PRN PRN Reason: Nausea / Vomiting Ondansetron HCl (Zofran Odt) 4 mg TL Q6HR PRN PRN Reason: Nausea / Vomiting Pantoprazole Sodium (Protonix) 40 mg IVP QDAC [facility] Last Admin: 06/09/19 06:41 Dose: 40 mg Sodium Chloride (Normal Saline Flush 0.9%) 10 ml IVP PRN PRN PRN Reason: NEEDED PER PROVIDER ORDERS Sodium Chloride (Normal Saline Flush 0.9%) 10 ml IVP 0100,0900,1700 [facility] Last Admin: 06/09/19 09:24 Dose: Not Given Cyclobenzaprine [Flexeril] 10 mg PO DAILY 04/26/15 Rizatriptan Benzoate [Rizatriptan] 5 mg PO DAILY PRN 04/26/15 Amantadine HCl [Amantadine] 100 mg PO BID 10/13/15 SUMAtriptan [Imitrex] 50 mg PO ONCE PRN 10/13/15 clonazePAM [Clonazepam] 0.25 mg PO BID 10/13/15 raNITIdine [Zantac] 150 mg PO BID 10/13/15 Calcium Citrate 600 mg ORAL DAILY 09/11/16 Glatiramer Acetate [Copaxone] 20 mg SQ DAILY 09/11/16 Lactobacillus Acidophilus [Probiotic Acidophilus] 1 tab ORAL DAILY 09/11/16 Melatonin 3 mg ORAL DAILY 09/11/16 Topiramate [Topamax] 50 mg ORAL DAILY 09/11/16 Amitriptyline HCl 50 mg PO QPM 06/08/19 Baclofen 20 mg PO QPM 06/08/19 Buspirone HCl 20 mg PO BID 06/08/19 Celecoxib 200 mg PO DAILY PRN 06/08/19 LORazepam [Lorazepam] 0.5 mg PO Q6H PRN 06/08/19 Norelgestromin/Ethin.estradiol [Xulane Patch] 1 patch TOP .WEEKLY X 3W, OFF 1W 06/08/19 OXcarbazepine [Oxcarbazepine] 150 mg PO QPM 06/08/19 Ondansetron Odt [Zofran Odt] 4 mg PO .1 TO 2 TIMES/DAY PRN 06/08/19 Oxycodone HCl 10 mg PO Q6H PRN 06/08/19 Topiramate 100 mg PO QPM 06/08/19 Trazodone HCl 25 mg PO QPM 06/08/19 estradioL [Estrace] 1 mg PO DAILY 06/08/19 hydrOXYzine HCL [Hydroxyzine HCl] 25 mg PO DAILY PRN 06/08/19 Objective - Vital Signs/Intake & Output Reviewed Vital Signs: Yes Vital Signs: Vital Signs x48h Temp Pulse Pulse Resp BP Pulse Ox 06/09/19 12:08 100 06/09/19 12:00 37.4 C 101 H 16 112/71 97 06/09/19 11:00 96 16 109/69 98 06/09/19 10:00 93 17 108/62 98 06/09/19 09:00 90 14 113/71 98 06/09/19 08:00 37.2 C 91 18 109/68 98 06/09/19 07:39 85 20 99 06/09/19 07:34 85 06/09/19 07:00 85 84 17 99/60 98 06/09/19 06:00 92 18 107/77 99 06/09/19 05:00 89 25 H 111/71 99 Intake & Output: Intake & Output 06/06/19 06/07/19 06/08/19 06/09/19 23:59 23:59 23:59 23:59 Intake Total 3520.503 1770.558 Output Total 1872 516 Balance 2244.278 0802.558 - Objective General Appearance: positive: No acute distress, Other (Asleep, does respond to painful stimuli with grimace, withdrawal from noxious stimuli. Occasionally she will be spontaneously alert on her own but only for a few moments. Then goes right back to sleep) Eyes Bilateral: positive: PERRL ENT: positive: Pharynx nml Neck: positive: No JVD Respiratory: positive: Chest non-tender, Other (ET tube ET tube in place strictly for airway protection. There is no respiratory problems other than central apnea). negative: Wheezes, Rales, Rhonchi Cardiovascular: positive: Regular rate & rhythm. negative: Gallop/S4, Friction rub Abdomen: positive: Non-tender, No organomegaly, Nml bowel sounds, No distention Skin: positive: Warm, Dry Extremities: positive: Non-tender, No pedal edema Neurologic/Psychiatric: positive: Motor nml. negative: Facial droop - Lab Results Fish Bones: 06/09/19 04:10 06/09/19 04:10 Other Labs: Lab Results x24hrs 06/09/19 06/09/19 06/08/19 Range/Units 04:10 04:10 14:45 WBC 5.9 (4.8-10.8) x10^3/uL RBC 4.25 (4.20-5.40) 10^6/uL Hgb 13.2 (12.0-16.0) g/dL Hct 40.7 (37.0-47.0) % MCV 95.8 (81.0-99.0) fL MCH 31.1 H (27.0-31.0) pg MCHC 32.4 (32.0-36.0) g/dL RDW 12.5 (12.0-15.0) % Plt Count 140 (130-450) 10^3/uL MPV 10.3 (7.9-10.8) fL Neut # (Auto) 5.1 (1.5-6.6) 10^3/uL Lymph # (Auto) 0.2 L (1.5-3.5) 10^3/uL Morton # (Auto) 0.6 (0.0-1.0) 10^3/uL Eos # (Auto) 0.0 (0.0-0.7) 10^3/uL Baso # (Auto) 0.0 (0.0-0.1) 10^3/uL Absolute Nucleated RBC 0.00 x10^3/uL Nucleated RBC % 0.0 /100WBC Bld Gas Analysis Time 1454 Sample Site LEFT RADIAL ABG pH 7.52 H (7.35-7.45) ABG pCO2 23 L* (34-45) mmHg ABG pO2 196 H* (80-100) mmHg ABG HCO3 18.3 L (22.0-26.0) mmol/L ABG Total CO2 19.0 L (21.0-29.0) MMOL/L ABG O2 Saturation 99 H (94-98) % ABG Base Excess -2.6 L (-2.0-3.0) mmol/L Jase Test POSITIVE Respiration Rate 16 b/min O2 Delivery Device VENTILATOR Vent Mode SIMV FiO2 0.40 Tidal Volume 500 mL PEEP 5 cmH2O Pressure Support Vent 10 cmH2O Sodium 142 (135-145) mmol/L Potassium 3.5 (3.5-5.0) mmol/L Chloride 113 H (101-111) mmol/L Carbon Dioxide 25 (21-32) mmol/L Anion Gap 4.0 L (6-13) BUN 9 (6-20) mg/dL Creatinine 0.9 (0.4-1.0) mg/dL Estimated GFR (MDRD) 72 L (>89) Glucose 99 (70-100) mg/dL Calcium 8.6 (8.5-10.3) mg/dL Nasal Screen MRSA (PCR) (NEGATIVE) 06/08/19 Range/Units 10:00 WBC (4.8-10.8) x10^3/uL RBC (4.20-5.40) 10^6/uL Hgb (12.0-16.0) g/dL Hct (37.0-47.0) % MCV (81.0-99.0) fL MCH (27.0-31.0) pg MCHC (32.0-36.0) g/dL RDW (12.0-15.0) % Plt Count (130-450) 10^3/uL MPV (7.9-10.8) fL Neut # (Auto) (1.5-6.6) 10^3/uL Lymph # (Auto) (1.5-3.5) 10^3/uL Morton # (Auto) (0.0-1.0) 10^3/uL Eos # (Auto) (0.0-0.7) 10^3/uL Baso # (Auto) (0.0-0.1) 10^3/uL Absolute Nucleated RBC x10^3/uL Nucleated RBC % /100WBC Bld Gas Analysis Time Sample Site ABG pH (7.35-7.45) ABG pCO2 (34-45) mmHg ABG pO2 (80-100) mmHg ABG HCO3 (22.0-26.0) mmol/L ABG Total CO2 (21.0-29.0) MMOL/L ABG O2 Saturation (94-98) % ABG Base Excess (-2.0-3.0) mmol/L Jase Test Respiration Rate b/min O2 Delivery Device Vent Mode FiO2 Tidal Volume mL PEEP cmH2O Pressure Support Vent cmH2O Sodium (135-145) mmol/L Potassium (3.5-5.0) mmol/L Chloride (101-111) mmol/L Carbon Dioxide (21-32) mmol/L Anion Gap (6-13) BUN (6-20) mg/dL Creatinine (0.4-1.0) mg/dL Estimated GFR (MDRD) (>89) Glucose (70-100) mg/dL Calcium (8.5-10.3) mg/dL Nasal Screen MRSA (PCR) NEGATIVE (NEGATIVE) ABX Reporting Has patient been on IV antibiotics over the past 48 hours?: No Assessment/Plan - Problem List (1) Intentional overdose of drug in tablet form Impression: Tricyclic overdose, benzodiazepine overdose, possible opiate overdose. Romazicon contraindicated in tricyclic overdose. She was initially breathing well in the emergency room, but upon transfer to ICU has had respiratory difficulties with apnea.There have been no changes hemodynamically. There have been no arrhythmias on telemetry. She is just still sedated. She was placed in ICU with Narcan drip. That is off after 12 hours. Observation stay initally and now will transition to inpatient Close monitoring of vitals and until she is awake to be able to be extubated [facility] evaluation once extubated (2) Respiratory agent overdose Conclusion/Plan: with apnea. She has now been intubated. We will keep her on ventilator support for the next few hours. Wait for effects of her drug overdose to resolve before extubating. Maintain oral care, sedation as needed.She is now off Narcan drip. We did have her on propofol overnight. This morning we stopped propofol about 10 minutes before 7. She does wake up and will try to pull off her ET tube. But then she goes right back to sleep with prompting. She has been on CPAP support for over 2 and half hours with the vent. No respiratory distress. But was still not sure that she is really able to stay without an ET tube. She is so sedated. We will keep her on it until she is more awake to follow commands. 06/08: Qualifiers: Encounter type: initial encounter
[2019-06-09] MEDS: SODIUM CHLORIDE 0.9% 500 ML IV PRN (14:28)
[2019-06-09] MEDS ORDERED: SODIUM CHLORIDE INHALATION 3 ML NEB INH PRN (15:47)
[2019-06-10] MEDS: SODIUM CHLORIDE FLUSH 0.9% 10 ML SYRINGE IVP SCH ×4 (00:17→23:22)
[2019-06-10] MEDS: ACETAMINOPHEN 1,000 MG/100 ML 100 ML IV PRN ×2 (00:30→19:48)
[2019-06-10] MEDS: LACTATED RINGERS 1,000 ML IV SCH ×2 (03:10→10:05)
[2019-06-10] MEDS: PROPOFOL 1000 MG/100 ML 100 ML IV SCH (05:11)
[2019-06-10] MEDS: PANTOPRAZOLE 40 MG VIAL IVP SCH (07:19)
[2019-06-10 07:34] LABS: BASOPHILS % (AUTO) 0.2 %; EOSINOPHILS % (AUTO) 0.3 %; HGB - HEMOGLOBIN 11.8 g/dL (12.0-16.0); LYMPHOCYTES # (AUTO) 0.2 10^3/uL (1.5-3.5); LYMPHOCYTES % (AUTO) 3.7 %; MEAN CORPUSCULAR HEMOGLOBIN 32.5 pg (27.0-31.0); MEAN CORPUSCULAR HGB CONC 33.4 g/dL (32.0-36.0); MEAN CORPUSCULAR VOLUME 97.2 fL (81.0-99.0); MEAN PLATELET VOLUME 9.5 fL (7.9-10.8); MONOCYTES # (AUTO) 0.7 10^3/uL (0.0-1.0); NEUTROPHILS # (AUTO) 5.5 10^3/uL (1.5-6.6); NEUTROPHILS % (AUTO) 85.5 %; PLT - PLATELET COUNT 96 10^3/uL (130-450); RED BLOOD COUNT 3.63 10^6/uL (4.20-5.40); RED CELL DISTRIBUTION WIDTH 12.3 % (12.0-15.0); WHITE BLOOD COUNT 6.5 x10^3/uL (4.8-10.8)
[2019-06-10 08:01] LABS: CALCIUM 8.2 mg/dL (8.5-10.3); CREATININE 0.9 mg/dL (0.4-1.0); MAGNESIUM 1.8 mg/dL (1.7-2.8); PHOSPHORUS 2.5 mg/dL (2.5-4.6)
[2019-06-10] MEDS ORDERED: POTASSIUM CHLORIDE 20 MEQ TABLET PO ONE (08:26)
[2019-06-10] MEDS: CHLORHEXIDINE GLUCONATE 15 ML UDC PO SCH ×2 (08:48→21:03)
[2019-06-10] MEDS: ENOXAPARIN 40 MG/0.4 ML SYRINGE SUBQ SCH (09:21)
[2019-06-10] MEDS ORDERED: ALBUTEROL NEB 2.5 MG/3 ML INH PRN (10:04)
[2019-06-10] MEDS: POTASSIUM CHLOR 10 MEQ/100 ML 10 MEQ/100 ML BAG IV SCH ×4 (10:25→16:00)
--- NOTE | 2019-06-10 11:20 | XRAY Report ---
Reason: cough, sob Procedure Date: 06/10/2019 Accession Number: [id number] / [id number] Procedure: XR - Chest 1 View X-Ray CPT Code: 69437 Final Report FULL RESULT: EXAM: CHEST RADIOGRAPHY EXAM DATE: 06/10/2019 10:49 AM. CLINICAL HISTORY: Cough, shortness of breath. COMPARISON: CHEST FOR LINE PLACEMENT 06/08/2019 11:46 AM. TECHNIQUE: 1 view. FINDINGS: Lungs/Pleura: Right lower lobe and retrocardiac left lower lobe airspace disease. Mediastinum: Within exam limitations, the cardiomediastinal contour is normal. Other: Endotracheal and enteric tubes have been removed. IMPRESSION: 1. New bilateral lower lobe airspace disease. Question aspiration pneumonia. RADIA
--- NOTE | 2019-06-10 12:13 | PROVIDER PROGRESS NOTE ---
Subjective - Prog Note Date Prog Note Date: 06/10/19 Prog Note Time: 14:40 - Subjective Subjective: she has been extubated since this am. Cough is thick, white phlegm. No fever. Mild hypoxia. Not very verbal and voice can barely be heard. sitting up on her own and using tissue to cough into. Current Medications - Current Medications Current Medications: Active Medications Albuterol () 2.5 mg INH RTQ4H PRN PRN Reason: Wheezing Chlorhexidine Gluconate (Peridex) 15 ml PO BID [facility] Last Admin: 06/10/19 08:48 Dose: Not Given Enoxaparin Sodium (Lovenox) 40 mg SUBQ DAILY [facility] Last Admin: 06/10/19 09:21 Dose: 40 mg Sodium Chloride (Normal Saline 0.9%) 500 mls @ 0 mls/hr IV Q24H PRN PRN Reason: TKO RATE Last Infusion: 06/09/19 22:00 Dose: Infused Lactated Ringer's (Lr) 1,000 mls @ 100 mls/hr IV .Q10H [facility] Last Infusion: 06/10/19 14:00 Dose: 100 mls/hr Acetaminophen (Ofirmev) 100 mls @ 400 mls/hr IV Q6HR PRN PRN Reason: PAIN Last Infusion: 06/10/19 00:45 Dose: Infused Potassium Chloride (Potassium Chloride) 10 meq in 100 mls @ 100 mls/hr IV Q1H [facility] Stop: 06/10/19 14:59 Last Admin: 06/10/19 14:20 Dose: 60 mls/hr Multi-Ingred Cream/Lotion/Oil/Oint (Lubrifresh Pm Ophth Oint) 1 applic EACHEYE QPM PRN PRN Reason: Dry Eye Last Admin: 06/08/19 17:20 Dose: 1 applic Ondansetron HCl (Zofran Inj) 4 mg IVP Q6HR PRN PRN Reason: Nausea / Vomiting Ondansetron HCl (Zofran Odt) 4 mg TL Q6HR PRN PRN Reason: Nausea / Vomiting Pantoprazole Sodium (Protonix) 40 mg IVP QDAC [facility] Last Admin: 06/10/19 07:19 Dose: 40 mg Sodium Chloride (Normal Saline Flush 0.9%) 10 ml IVP PRN PRN PRN Reason: NEEDED PER PROVIDER ORDERS Sodium Chloride (Normal Saline Flush 0.9%) 10 ml IVP 0100,0900,1700 JOHN Last Admin: 06/10/19 09:22 Dose: 10 ml Sodium Chloride (Normal Saline) 3 ml INH PRN PRN PRN Reason: PER PROVIDER ORDERS Cyclobenzaprine [Flexeril] 10 mg PO DAILY 04/26/15 Rizatriptan Benzoate [Rizatriptan] 5 mg PO DAILY PRN 04/26/15 Amantadine HCl [Amantadine] 100 mg PO BID 10/13/15 SUMAtriptan [Imitrex] 50 mg PO ONCE PRN 10/13/15 clonazePAM [Clonazepam] 0.25 mg PO BID 10/13/15 raNITIdine [Zantac] 150 mg PO BID 10/13/15 Calcium Citrate 600 mg ORAL DAILY 09/11/16 Lactobacillus Acidophilus [Probiotic Acidophilus] 1 tab ORAL DAILY 09/11/16 Melatonin 3 mg ORAL DAILY 09/11/16 Topiramate [Topamax] 50 mg ORAL DAILY 09/11/16 Amitriptyline HCl 50 mg PO QPM 06/08/19 Baclofen 20 mg PO QPM 06/08/19 Buspirone HCl 20 mg PO BID 06/08/19 Celecoxib 200 mg PO DAILY PRN 06/08/19 LORazepam [Lorazepam] 0.5 mg PO Q6H PRN 06/08/19 Norelgestromin/Ethin.estradiol [Xulane Patch] 1 patch TOP .WEEKLY X 3W, OFF 1W 06/08/19 OXcarbazepine [Oxcarbazepine] 150 mg PO QPM 06/08/19 Ondansetron Odt [Zofran Odt] 4 mg PO .1 TO 2 TIMES/DAY PRN 06/08/19 Topiramate 100 mg PO QPM 06/08/19 Trazodone HCl 25 mg PO QPM 06/08/19 estradioL [Estrace] 1 mg PO DAILY 06/08/19 hydrOXYzine HCL [Hydroxyzine HCl] 25 mg PO DAILY PRN 06/08/19 Objective - Vital Signs/Intake & Output Reviewed Vital Signs: Yes Vital Signs: Vital Signs x48h Temp Pulse Pulse Resp BP Pulse Ox 06/10/19 11:00 101 H 20 106/66 96 06/10/19 10:00 37.6 C H 111 H 19 106/62 94 06/10/19 09:00 112 H 20 114/67 93 06/10/19 08:25 24 95 06/10/19 07:59 37.8 C H 114 H 13 119/78 99 06/10/19 07:00 96 18 115/74 96 06/10/19 06:47 98 06/10/19 06:00 91 115/74 97 06/10/19 05:30 25 L 06/10/19 05:00 91 11 L 117/76 97 Intake & Output: Intake & Output 06/07/19 06/08/19 06/09/19 06/10/19 23:59 23:59 23:59 23:59 Intake Total 3520.503 4519.558 1251.667 Output Total 1872 911 360 Balance 0437.265 4019.558 891.667 - Objective General Appearance: positive: No acute distress, Lethargic Eyes Bilateral: positive: PERRL ENT: positive: Pharynx nml Neck: positive: No JVD. negative: Stiff neck Respiratory: positive: Chest non-tender, No respiratory distress, Rhonchi (at bases and mid lungs), Other (cough is deep and rhonchous) Cardiovascular: positive: Regular rate & rhythm. negative: Gallop/S4, Friction rub Abdomen: positive: Non-tender, No organomegaly, Nml bowel sounds, No distention Skin: positive: Warm, Dry, Pallor Extremities: positive: Non-tender, No pedal edema Neurologic/Psychiatric: positive: Oriented x3, CN's nml (2-12) (but voice can barely be heard. ?laryngeal trauma from ET), Motor nml, Slurred/abnml speech (slow to move and repond) - Lab Results Fish Bones: 06/10/19 07:26 06/10/19 07:26 Other Labs: Lab Results x24hrs 06/10/19 06/10/19 Range/Units 07:26 07:26 WBC 6.5 (4.8-10.8) x10^3/uL RBC 3.63 L (4.20-5.40) 10^6/uL Hgb 11.8 L (12.0-16.0) g/dL Hct 35.3 L (37.0-47.0) % MCV 97.2 (81.0-99.0) fL MCH 32.5 H (27.0-31.0) pg MCHC 33.4 (32.0-36.0) g/dL RDW 12.3 (12.0-15.0) % Plt Count 96 L (130-450) 10^3/uL MPV 9.5 (7.9-10.8) fL Neut # (Auto) 5.5 (1.5-6.6) 10^3/uL Lymph # (Auto) 0.2 L (1.5-3.5) 10^3/uL [place] # (Auto) 0.7 (0.0-1.0) 10^3/uL Eos # (Auto) 0.0 (0.0-0.7) 10^3/uL Baso # (Auto) 0.0 (0.0-0.1) 10^3/uL Absolute Nucleated RBC 0.00 x10^3/uL Nucleated RBC % 0.0 /100WBC Sodium 141 (135-145) mmol/L Potassium 3.2 L (3.5-5.0) mmol/L Chloride 110 (101-111) mmol/L Carbon Dioxide 21 (21-32) mmol/L Anion Gap 10.0 (6-13) BUN 9 (6-20) mg/dL Creatinine 0.9 (0.4-1.0) mg/dL Estimated GFR (MDRD) 72 L (>89) Glucose 79 (70-100) mg/dL Calcium 8.2 L (8.5-10.3) mg/dL Phosphorus 2.5 (2.5-4.6) mg/dL Magnesium 1.8 (1.7-2.8) mg/dL - Diagnostic Imaging Diagnostic Imaging Results: positive: Final report reviewed Diagnostic Imaging Comments: CHEST RADIOGRAPHY EXAM DATE: 06/10/2019 10:49 AM. CLINICAL HISTORY: Cough, shortness of breath. COMPARISON: CHEST FOR LINE PLACEMENT 06/08/2019 11:46 AM. TECHNIQUE: 1 view. FINDINGS: Lungs/Pleura: Right lower lobe and retrocardiac left lower lobe airspace disease. Mediastinum: Within exam limitations, the cardiomediastinal contour is normal. Other: Endotracheal and enteric tubes have been removed. IMPRESSION: 1. New bilateral lower lobe airspace disease. Question aspiration pneumonia. ABX Reporting Has patient been on IV antibiotics over the past 48 hours?: No Assessment/Plan - Problem List (1) Pneumonia of both lower lobes Impression: This was not present on admission. It looks like she may have aspirated and most likely scenario would have been when she was unconscious and had a drug overdose. Is now showing up on chest x-ray as a delayed response. There is no fever. She does have mild hypoxemia. Coarse phlegmy cough present. Plan: Already extubated No antibiotics at this time unless she develops a fever spike or elevated white cell count Encourage good pulmonary hygiene with cough, nebs, incentive spirometry if she can cooperate (2) Intentional overdose of drug in tablet form Impression: Tricyclic overdose, benzodiazepine overdose, possible opiate overdose. Confirmed on urine toxicology. Romazicon contraindicated in tricyclic overdose. She was initially breathing well in the emergency room, but upon transfer to ICU has had respiratory difficulties with apnea.There have been no changes hemodynamically. There have been no arrhythmias on telemetry. She is just still sedated. She was placed in ICU with Narcan drip. That was off after 12 hours. Observation stay initally and transitioned to inpatient / Close monitoring of vitals CDMHP evaluation once extubated and stable from her problem in #1 (3) Respiratory agent overdose Conclusion/Plan: with apnea. She was intubated 3/3 and 3/4. We kept her on ventilator support for a little over 48 hours. Waited for effects of her drug overdose to resolve before extubating. Off of propofol yesterday and still not awake enough to come off the vent. Stayed off propofol. Now this am extubated. Cough and phlegm shows the possible aspiration. Can't say when that happened since she was supervise every moment in ICU and no aspiration. No further apena noted. will use nebs, pulmonary hygein to bring up phlegm. watch for fever, elev wbc (4) hypokalemia supplement. recheck tomorrow.
[2019-06-10] MEDS: PHENOL THROAT SPRAY 177 ML MM PRN (19:48)
[2019-06-10] MEDS: estradioL 1 MG TABLET PO SCH (22:08)
[2019-06-10] MEDS ORDERED: oxyCODONE 5 MG TABLET PO PRN (23:27)
[2019-06-11] MEDS: PHENOL THROAT SPRAY 177 ML MM PRN (03:45)
[2019-06-11] MEDS ORDERED: BENZOCAINE/MENTHOL LOZENGE MM PRN (06:33)
[2019-06-11] MEDS: PANTOPRAZOLE 40 MG VIAL IVP SCH (06:43)
[2019-06-11] MEDS: SODIUM CHLORIDE FLUSH 0.9% 10 ML SYRINGE IVP SCH ×2 (07:48→20:01)
[2019-06-11] MEDS: CHLORHEXIDINE GLUCONATE 15 ML UDC PO SCH ×2 (07:53→20:11)
[2019-06-11] MEDS: ENOXAPARIN 40 MG/0.4 ML SYRINGE SUBQ SCH (08:47)
[2019-06-11] MEDS: estradioL 1 MG TABLET PO SCH (08:48)
[2019-06-11] MEDS: ACETAMINOPHEN 1,000 MG/100 ML 100 ML IV PRN (09:15)
--- NOTE | 2019-06-11 11:58 | DISCHARGE SUMMARY ---
Discharge Summary Admit Date: 06/08/19 Discharging Provider: Any Biggs MD Primary Care Provider: Juice Schmid DO; Andrew Mahajan MD Code Status: Do Not Attempt Resuscitation Condition at Discharge: Stable Discharge Disposition: 65 Psych Hosp/Unit DC/Xfer Discharge Facility Name: [facility] - DIAGNOSES Discharge Diagnoses with Status of Each Condition: 1. Intentional overdose of drug in tablet form 2. Respiratory agent overdose 3. Central apnea 4. Drug-induced neutropenia 5. Relapsing remitting multiple sclerosis 6. Depression with anxiety 7. Bilateral lower lobe infiltrates secondary to probable aspiration, asymptomatic - HPI History of Present Illness: 34-year-old white female who has had polycystic ovarian disease, and multiple sclerosis. She has not been able to be employed since 2019. Even then that was a brief time. 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 She cannot work in front of a computer screen because it triggers her migraines. She has problems with gait ataxia, and "a mental fog" because of her MS. She is experiencing some stress and anxiety with family in [place]. She and her are also in the midst of negotiating their marriage. She would like a divorce and is very unhappy. But she cannot divorce him because she is financially dependent on he and his insurance benefits. While she has been unhappy, is seeing a counselor, she has never stated that she wanted to kill herself according to her and best friend. He went to work yesterday. He works in [employer] at the [employer]. He works shipyard helper and comes home at 7 in the evening. Her best friend spoke to her at 10 PM last night and the conversation was "normal". came home after 7 AM this morning and found her unconscious in the living room floor. Bottles of oxycodone, trazodone, lorazepam, clonazepam are empty. She has not regained consciousness. In the emergency room she had stable vital signs, was breathing on her own, and had adequate O2 sats. She was admitted to ICU with a Narcan drip. Unfortunately after transfer, she became apneic with PCO2 monitor reading 0. As such I have asked anesthesia to emergently intubate her after we bagged her to stabilize her airway. The entire time she is had a pulse and a pressure. History is obtained from her and best friend. Patient is unable to answer questions at this time. Past Medical History Cardiovascular: reports: None Respiratory: reports: None Neuro: reports: Migraines, Multiple sclerosis (she is folloowed by Andrew Mahajan MD at [facility]. [phone], F [phone]. She has had symptoms for years. Easily stumbles. Brain did not think very clearly. Was not diagnosed till 2016. She is on Copaxone 20 mg subcu daily.) Endocrine/Autoimmune: reports: None GI: reports: GERD, Ulcers ASSET ACCOUNTANT: reports: Other (. Polycystic ovarian disease. It is unclear why, but she needed a hysterectomy and had 1 a year ago. She is on estrogen replacement therapy since then.) : reports: Frequency HEENT: reports: Chronic vision loss Psych: reports: Depression (She sees a counselor on a regular basis. Her does not know to the name of the counselor. She saw him June 03.), Anxiety Musculoskeletal: reports: Fatigue, Chronic back pain Derm: reports: None - CONSULTS | PROCEDURES Procedures: 1. Head CT with no acute intracranial findings. 2. Admission chest x-ray and postintubation chest x-ray show no consolidation, probable early perihilar edema or pulmonary congestion. 3. Post extubation chest x-ray shows bilateral lower lobe airspace disease, questionable aspiration pneumonia. However patient has no hypoxia, no fever, no white cell count. - HOSPITAL COURSE Hospital Course: She initially presented to the emergency room as obtunded. Narcan made no difference to her encephalopathy. However she was stable with regards to blood pressure, pulse, and oxygenation. She was then transferred to observation status and after a few moments of intake and assessment by nursing, she was noted to have a period of apnea. She maintained her pulse and blood pressure. A rapid response was called and the patient was instantly bagged and O2 sats were maintained. To protect her airway and protect her against central apnea, she was intubated. She was intubated for 24 hours and on rechecking her with CPAP, she tolerated that well but was not waking up or following commands. As so she was kept on ET tube and after 48 hours was now awake, alert enough to follow commands and be extubated. Over the next 24 hours she is remained stable with regards to blood pressure, pulse, oxygen. Chest x-ray was checked because of coughing and she had new bilateral infiltrates but there were no fever, no white cell count, no hypoxia and as such we are not treating that. By the time of discharge she is ambulating freely in the hallways with one-to-one supervision. Potassium was mildly low at 3.2 and supplemented that morning. She wanted a DO NOT RESUSCITATE/pulsed form filled out. She also wants us to make sure that her is not involved in her healthcare. I carefully explained that as long as she still legally to him, without her designating a power of sampler pickup, he is her power of sampler pickup by default. She will make plans legally to change that. She is still suicidal and that she is looking for an active way to kill herself. She feels that her multiple sclerosis, marriage, and depression are all overwhelming and she cannot do it anymore. As such CDP has been called. Temperature is 37.1. Blood pressure 131/94. Respirations 20. 94% on room air. Heart rate 109. Lungs have normal exam. There is no rhonchi, crackles, wheezing. She can get short of breath if she has to walk too far but that quickly resolves. PMI is normally placed with a regular rate and rhythm. Speech can be hoarse at times until she clears her throat. Mild edema of ankles. But no ataxia. Alert and oriented to person place and time. Greater than 30 minutes spent coordinating discharge. - ALLERGIES Allergies/Adverse Reactions: Allergies Allergy/AdvReac Type Severity Reaction Status Date / Time morphine Allergy Severe Respiratory Verified 10/13/15 13:04 NSAIDS (Non-Steroidal AdvReac Severe Emesis Verified 10/13/15 13:04 Anti-Inflamma Sulfa (Sulfonamide AdvReac Intermediate Unknown Verified 10/13/15 13:04 Antibiotics) - MEDICATIONS Home Medications: Ambulatory Orders Medication Instructions Recorded Confirmed Cyclobenzaprine [Flexeril] 10 mg PO DAILY PRN 04/26/15 06/08/19 SUMAtriptan [Imitrex] 50 mg PO BID MDD at least 2 hours 10/13/15 06/10/19 apart raNITIdine [Zantac] 150 mg PO BID 10/13/15 06/08/19 Calcium Citrate 600 mg ORAL DAILY 09/11/16 06/10/19 Lactobacillus Acidophilus 1 tab ORAL DAILY 09/11/16 06/10/19 [Probiotic Acidophilus] Melatonin 3 mg ORAL DAILY 09/11/16 06/10/19 Topiramate [Topamax] 50 mg ORAL DAILY 09/11/16 06/08/19 Baclofen 20 mg PO QPM 06/08/19 06/08/19 Buspirone HCl 20 mg PO BID 06/08/19 06/08/19 Celecoxib 200 mg PO DAILY PRN 06/08/19 06/08/19 OXcarbazepine [Oxcarbazepine] 150 mg PO QPM 06/08/19 06/11/19 Ondansetron Odt [Zofran Odt] 4 mg PO .1 TO 2 TIMES/DAY PRN 06/08/19 06/08/19 Topiramate 100 mg PO QPM 06/08/19 06/08/19 estradioL [Estrace] 1 mg PO DAILY 06/08/19 06/08/19 hydrOXYzine HCL [Hydroxyzine HCl] 25 mg PO DAILY PRN 06/08/19 06/08/19 Fingolimod HCl [Gilenya] 0.5 mg PO DAILY 06/11/19 06/11/19 - LABS Result Diagrams: 06/10/19 07:26 06/10/19 07:26
[2019-06-11] MEDS ORDERED: FINGOLIMOD 0.5 MG PO SCH (21:00)
[2019-06-11 22:07] VITALS: BP 139/97
== END 2019-06-11 21:45 | DRG 917 ==
LOC: EDUNIT# → ED 07:36 → MS2 09:02 → ICU 09:42 → OBSVTOIN 06-09 12:15 → EEVIPCON 06-09 12:15
PROVIDERS: ADMIT Specialist; ATTEND Specialist
PROC: 5A1945Z Respiratory Ventilation, 24-96 Consecutive Hours (ICD-10-PCS; principal; 2019-06-09)
DX: T42.4X2A Poisoning by benzodiazepines, intentional self-harm, initial encounter (principal); J69.0 Pneumonitis due to inhalation of food and vomit; R06.81 Apnea, not elsewhere classified; R41.82 Altered mental status, unspecified; D70.2 Other drug-induced agranulocytosis; T43.012A Poisoning by tricyclic antidepressants, intentional self-harm, initial encounter; T40.2X2A Poisoning by other opioids, intentional self-harm, initial encounter; Y92.009 Unspecified place in unspecified non-institutional (private) residence as the place of occurrence of the external cause; F41.8 Other specified anxiety disorders; G35 Multiple sclerosis; E87.6 Hypokalemia; G43.909 Migraine, unspecified, not intractable, without status migrainosus; F17.290 Nicotine dependence, other tobacco product, uncomplicated; G89.29 Other chronic pain; M54.9 Dorsalgia, unspecified; R53.83 Other fatigue; K21.9 Gastro-esophageal reflux disease without esophagitis; R35.0 Frequency of micturition; H54.7 Unspecified visual loss; R39.15 Urgency of urination; E28.2 Polycystic ovarian syndrome; Z87.11 Personal history of peptic ulcer disease; Z78.1 Physical restraint status; Z90.710 Acquired absence of both cervix and uterus; Z72.89 Other problems related to lifestyle
CPT/HCPCS: 36415; 36600; 70450; 71045; 80048; 80053; 80306; 80307; 80320; 80329; 81003; 82803; 83690; 83735; 84100; 84443; 85025; 87150; 93005; 94002; 94003; 94640; 94644; 96361; 96365; 96366; 96367; 96372; 96375; 99285; A9270; G0378; J0131; J1650; J7120; 81001; 87086; 94770